=== PATIENT | female | born 1975 ===

== ENCOUNTER 2021-05-19 10:20 | Emergency (ER) | payer BC ==
[2021-05-19 10:57] VITALS: BP 129/66; PULSE 77
[2021-05-19] MEDS ORDERED: Ketorolac 60 MG/2 ML SDV IM ONE (11:15)
[2021-05-19] MEDS ORDERED: Acetaminophen/oxyCODONE 325-5 MG Tab PO ONE (11:15)
--- NOTE | 2021-05-19 11:20 | EDM.PDOC ---
ED HPI GENERAL MEDICAL PROBLEM - General Chief Complaint: Lower Extremity Injury/Pain Stated Complaint: RT KNEE HURT Time Seen by Provider: 05/19/21 10:26 Source of Information: Reports: Patient History Limitations: Reports: No Limitations - History of Present Illness INITIAL COMMENTS - FREE TEXT/NARRATIVE: HISTORY AND PHYSICAL: History of present illness: Patient is a 45-year-old female who presents emergency room today with concern of right knee injury that occurred last night. Patient states that she went to go stand up off the couch and states that she lost her balance and started to fall. Patient states her right knee hit the ground directly and states that she did not completely fall and caught herself in a stride position. Patient states since then, she has not been able to straighten the knee due to pain and discomfort. Patient states that she does not have any underlying knee issues and states that she is able to walk with a limp. Patient denies any head injury or loss of consciousness or any other associated symptoms. Patient states she has a history of hysterectomy so is not . Patient denies fever, chills, chest pain, shortness of breath, or cough. Denies headache, neck stiff ness, change in vision, syncope, or near syncope. Denies nausea, vomiting, abdominal pain, diarrhea, constipation, or dysuria. Has not noted any blood in urine or stool. Patient has been eating and drinking appropriately. Review of systems: As per history of present illness and below otherwise all systems reviewed and negative. Past medical history: As per history of present illness and as reviewed below otherwise noncontributory. Surgical history: As per history of present illness and as reviewed below otherwise noncontributory. Social history: See social history for further information Family history: As per history of present illness and as reviewed below otherwise noncontributory. Physical exam: General: Patient is alert, oriented, and in no acute distress. Patient sitting comfortably on exam table. Vitals stable and reviewed by me. HEENT: Atraumatic, normocephalic, pupils equal and reactive bilaterally, negative for conjunctival pallor or scleral icterus, mucous membranes moist, TMs normal bilaterally, throat clear, neck supple, nontender, trachea midline. No drooling or trismus noted. No meningeal signs. No hot potato voice noted. Lungs: Clear to auscultation, breath sounds equal bilaterally, chest nontender. Heart: S1S2, regular rate and rhythm without overt murmur Abdomen: Soft, nondistended, nontender. Negative for masses or hepatosplenomegaly. Negative for costovertebral tenderness. Pelvis: Stable nontender. Genitourinary: Deferred. Rectal: Deferred. Skin: Intact, warm, dry. No lesions or rashes noted. Extremities: Patient has limited range of motion of the right knee due to pain. Patient has generalized discomfort with palpation of the right knee specifically over the medial and lateral aspects of the knee. No obvious erythema of the knee with some mild edema noted. Patient does have full range of motion of the right ankle digits and hip. Dorsalis pedis and posterior tibial pulses are grossly intact of the right lower extremity with capillary refill less than 2 seconds. All compartments are soft of the right lower extremity. Otherwise, atraumatic, negative for cords or calf pain. Neurovascular unremarkable. Neuro: Awake, alert, oriented. Cranial nerves II through XII unremarkable. Cerebellum unremarkable. Motor and sensory unremarkable throughout. Exam nonfocal. Notes: Signs and symptoms that were prompt return to the ED thoroughly discussed with patient. Discussed importance for follow-up with an orthopedic provider. Voices understanding and is agreeable to plan of care. Denies any further questions or concerns at this time. Diagnostics: Knee x-ray Therapeutics: Toradol, 5/325 oxycodone 1 tab, knee immobilizer, (patient has crutches available to her at home and declines crutches today) Prescription: Diclofenac Impression: Right knee injury rule out ligamentous or meniscus injury Plan: 1. Rest, ice, elevate the affected extremity. You can apply ice 15 minutes on, 15 minutes off. Use the knee immobilizer and crutches until follow-up with an orthopedic provider 2. Tylenol as directed for pain management or discomfort. Take diclofenac as prescribed. Do not take any additional NSAIDs such as ibuprofen, naproxen, Aleve, or aspirin along with diclofenac. 3. Follow up with the Orthopedic provider as discussed. Return to the ED as needed and as discussed. Definitive disposition and diagnosis as appropriate pending reevaluation and review of above. Right Knee Pain Score (Numeric/FACES): 6 - Related Data Allergies Allergy/AdvReac Type Severity Reaction Status Date / Time metronidazole [From Flagyl] Allergy Shortness Verified 05/19/21 10:51 of Breath succinylcholine Allergy Other Verified 05/19/21 10:51 Home Meds: Home Meds Diclofenac Sodium [Voltaren] 75 mg PO BIDMEALS PRN #15 tab.cr 05/19/21 [Rx] Levothyroxine 150 mcg PO DAILY 05/19/21 [History] Past Medical History HEENT History: Reports: None Genitourinary History: Reports: UTI, Recurrent [employer] History: Reports: , Spontaneous Musculoskeletal History: Reports: Back Pain, Chronic Neurological History: Reports: Migraines Psychiatric History: Reports: Anxiety, Depression Endocrine/Metabolic History: Reports: Obesity/BMI 30+ - Infectious Disease History Infectious Disease History: Reports: Chicken Pox - Past Surgical History Head Surgeries/Procedures: Reports: None HEENT Surgical History: Reports: Oral Surgery Other HEENT Surgeries/Procedures: Hoskins teeth removed Other GI Surgeries/Procedures: Gastric Sleeve Female Surgical History: Reports: D&C Other Female Surgeries/Procedures: hx D&C, ESSURE, cryoablation of endometrium Social & Family History - Family History Family Medical History: No Pertinent Family History - Tobacco Use Tobacco Use Status *Q: Never Tobacco User - Caffeine Use Caffeine Use: Reports: None - Recreational Drug Use Recreational Drug Use: No Review of Systems - Review of Systems Review Of Systems: Comprehensive ROS is negative, except as noted in HPI. ED EXAM, GENERAL - Physical Exam Exam: See Below (see dictation) Course - Vital Signs Last Recorded V/S: Last Vital Signs Temp 96.9 F 05/19/21 10:52 Pulse 77 05/19/21 10:52 Resp 17 05/19/21 10:52 BP 129/66 05/19/21 10:52 Pulse Ox 98 05/19/21 10:52 - Orders/Labs/Meds Orders: Active Orders 24 hr Category Date Time Status DME for Discharge [COMM] Stat Oth 05/19/21 12:25 Ordered Meds: Medications Discontinued Medications Generic Name Dose Route Start Last Admin Trade Name Freq PRN Reason Stop Dose Admin Ketorolac Tromethamine 60 mg 05/19/21 11:15 05/19/21 11:23 Ketorolac 60 Mg/2 Ml Sdv IM 05/19/21 11:16 60 mg ONETIME ONE Administration Oxycodone/Acetaminophen 1 tab 05/19/21 11:15 05/19/21 11:22 Acetaminophen/Oxycodone 325-5 Mg Tab PO 05/19/21 11:16 1 tab ONETIME ONE Administration Departure - Departure Time of Disposition: 12:34 Disposition: Home, Self-Care 01 Clinical Impression: Right knee injury Qualifiers: Encounter type: initial encounter Qualified Code(s): S89.91XA - Unspecified injury of right lower leg, initial encounter - Discharge Information Prescriptions: Diclofenac Sodium [Voltaren] 75 mg PO BIDMEALS PRN #15 tab.cr PRN Reason: Pain Instructions: Acute Knee Pain, Adult, [id number] Referrals: Gerardo Luong MD [Primary Care Provider] - Forms: ED Department Discharge Additional Instructions: The following information is given to patients seen in the emergency department who are being discharged to home. This information is to outline your options for follow-up care. We provide all patients seen in our emergency department with a follow-up referral. The need for follow-up, as well as the timing and circumstances, are variable depending upon the specifics of your emergency department visit. If you don't have a primary care physician on staff, we will provide you with a referral. We always advise you to contact your personal physician following an emergency department visit to inform them of the circumstance of the visit and for follow-up with them and/or the need for any referrals to a consulting specialist. The emergency department will also refer you to a specialist when appropriate. This referral assures that you have the opportunity for follow-up care with a specialist. All of these measure are taken in an effort to provide you with optimal care, which includes your follow-up. Under all circumstances we always encourage you to contact your private physician who remains a resource for coordinating your care. When calling for follow-up care, please make the office aware that this follow-up is from your recent emergency room visit. If for any reason you are refused follow-up, please contact the [facility] at and asked to speak to the emergency department charge nurse. [facility] [address] [place] [address] [id number] [address] [address] [facility] [address], [address] [place] [address] 1. Rest, ice, elevate the affected extremity. You can apply ice 15 minutes on, 15 minutes off. Use the knee immobilizer and crutches until follow-up with an orthopedic provider 2. Tylenol as directed for pain management or discomfort. Take diclofenac as prescribed. Do not take any additional NSAIDs such as ibuprofen, naproxen, Aleve, or aspirin along with diclofenac. 3. Follow up with the Orthopedic provider as discussed. Return to the ED as needed and as discussed. Sepsis Event Note (ED) - Evaluation Sepsis Screening Result: No Definite Risk - Focused Exam Vital Signs: Vital Signs Temp Pulse Resp BP Pulse Ox 05/19/21 10:52 96.9 F 77 17 129/66 98 - My Orders Last 24 Hours: My Active Orders 05/19/21 12:25 DME for Discharge [COMM] Stat - Assessment/Plan Last 24 Hours: My Active Orders 05/19/21 12:25 DME for Discharge [COMM] Stat
--- NOTE | 2021-05-19 12:24 | CR ---
For Patients: As a result of the Cures Act, medical imaging exams and procedure reports are released immediately into your electronic medical record. You may view this report before your referring provider. If you have questions, please contact your health care provider. INDICATION: Trauma. TECHNIQUE: Right knee radiographs, 3 views. COMPARISON: None available. FINDINGS: No dislocation or displaced fracture. Minimal patellofemoral compartment degenerative changes. The medial and lateral compartment joint spaces are relatively maintained. Possible small joint effusion. IMPRESSION: Right knee without dislocation or displaced fracture. Dictated by Minh Perez MD @ 05/19/2021 12:24:08 PM Dictated by: Minh Perez MD @ 05/19/2021 12:24:14 (Electronically Signed)
== END 2021-05-19 12:39 | disposition home or self-care (01) ==
LOC: MW.ED 10:20
DX: S89.91XA Unspecified injury of right lower leg, initial encounter (principal); E66.9 Obesity, unspecified; Z88.1 Allergy status to other antibiotic agents; Z88.6 Allergy status to analgesic agent; Z68.30 Body mass index [BMI] 30.0-30.9, adult; W18.09XA Striking against other object with subsequent fall, initial encounter
CPT/HCPCS: 73562; 96372; 99283; A9270; J1885